=== PATIENT | male | born 1955 | race Two or more races ===

== ENCOUNTER 2021-07-15 06:20 | Outpatient (CLI) | payer OTHER | END 2021-07-15 06:21 | disposition home or self-care (01) | LOC: LAB 06:20 | PROVIDERS: ATTEND Specialist | DX: Z12.11 Encounter for screening for malignant neoplasm of colon (principal); E03.9 Hypothyroidism, unspecified; E11.21 Type 2 diabetes mellitus with diabetic nephropathy; N39.9 Disorder of urinary system, unspecified; N40.1 Benign prostatic hyperplasia with lower urinary tract symptoms; N40.0 Benign prostatic hyperplasia without lower urinary tract symptoms; E78.2 Mixed hyperlipidemia; E11.65 Type 2 diabetes mellitus with hyperglycemia; D64.9 Anemia, unspecified; K75.81 Nonalcoholic steatohepatitis (NASH); N25.81 Secondary hyperparathyroidism of renal origin; J45.998 Other asthma ==

== ENCOUNTER 2021-07-16 06:40 | Outpatient (CLI) | payer OTHER | END 2021-07-16 15:28 | disposition home or self-care (01) | LOC: LAB 06:40 | PROVIDERS: ATTEND Specialist | DX: Z12.11 Encounter for screening for malignant neoplasm of colon (principal); E11.21 Type 2 diabetes mellitus with diabetic nephropathy; E78.2 Mixed hyperlipidemia; D64.9 Anemia, unspecified ==